=== PATIENT | male | born 1970 | race Caucasian/White ===

== ENCOUNTER 2024-03-19 11:00 | Emergency (ER) | payer MEDICARE, MEDICAID, SELFPAY ==
--- NOTE | 2024-03-19 11:22 | ED.GENADUL_ITS ---
Discharge Plan Disposition Patient Disposition: Eloped Discharge Details Clinical Impression: Agitation Primary Care Provider: Unknown,Unknown ED Provider: Be Borden Discharge Data Discharge Date/Time-TO BE ENTERED AT DEPARTURE: 03/19/24 11:28 HPI General Date/Time Provider Initiated Documentation: 03/19/24 11:21 . HPI Narrative: MDM This is an agitated male in the emergency department during my shift to arrived via [facility] police. He did not allow me to participate in his evaluation. He did not want care though he had initially told police that he wanted to be brought to the emergency department. He was discharged with police custody. He presented voluntarily with police and subsequently left prior to his evaluation being initiated I did not feel that he met criteria for an involuntary hold. He had no signs of trauma to suggest benefit from CT head. Furthermore police noted no recent trauma during their time in custody. HPI This is a 53-year-old male with reported history of bipolar disorder not taking any home medications arrived to the emergency department via [place] police custody after reportedly calling in 8 throughout. He was initially brought to an intoxication facility but his ethanol level was undetectable. He subsequently requested to be transferred to the emergency department. During his initial assessment in the emergency department he requested to leave. Exam General Mildly agitated. Head: Normocephalic, atraumatic. Eye: Extraocular eye movements intact. No conjunctival injection. No scleral icterus. Ear, nose, mouth, throat: Grossly normal inspection. Normal voice, handling secretions normally. Neck: Trachea midline. Cardiovascular: Well-perfused distal extremities. Respiratory: Nonlabored respiration. Gastrointestinal: Nondistended abdomen. Musculoskeletal: No edema. Moving all 4 extremities spontaneously. Skin: Normal for age and race, grossly normal temperature and turgor. No acute rash. Neurologic: Alert and ambulating. GCS not assessed. Psychiatric: Angry and disheveled appearing. Medical Decision Making Quality:SDOH Health Related Social Needs: No Data to Display PFSH All Active Problems (Updated 03/19/24 @ 15:35 by Be Borden MD) Agitation (Acute) Social History Smoking risk assessment performed?: No Details: unable to obtain Additional Social history: unable to obtain
--- NOTE | 2024-03-19 11:43 | NUR.NOTE ---
Nursing Note: this RN attempted to take pt VS pateint declined, told this RN get out of this room and dont talk to me Told provider he wants to smoke. Patient took all personal belongings out of department with [facility] and security following
== END 2024-03-19 11:28 | disposition left against medical advice (07) ==
LOC: ER 11:43
PROVIDERS: Emergency Provider Emergency Medicine
DX: R45.1 Restlessness and agitation (principal); Z53.21 Procedure and treatment not carried out due to patient leaving prior to being seen by health care provider

== ENCOUNTER 2024-03-19 21:32 | Emergency (ER) | payer MEDICARE, MEDICAID, SELFPAY ==
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
== END 2024-03-19 22:04 | disposition home or self-care (01) ==
PROVIDERS: Emergency Provider Emergency Medicine
DX: R46.2 Strange and inexplicable behavior (principal); R45.1 Restlessness and agitation
CPT/HCPCS: 99283

== ENCOUNTER 2024-03-21 01:46 | Emergency (ER) | payer MEDICARE, MEDICAID, SELFPAY ==
[2024-03-21] VITALS (15 sets, daily range): BP systolic 115–189; BP diastolic 85–132; PULSE 62–107; RESP 20–22; TEMP 36.6; O2SAT 94–98
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
--- NOTE | 2024-03-21 02:11 | NUR.NOTE ---
Nursing Note: Patients belongings have been inventoried and stored in Zone B room 1's locker.
[2024-03-21] MEDS: diazePAM 5 MG TAB PO (02:16)
[2024-03-21] MEDS: OLANZapine 10 MG TAB PO (02:16)
[2024-03-21 03:18] LABS: Abs Immature Grans 0.02 10^3/uL (0.0-0.06); Absolute Basophil Count 0.07 10^3/uL (0.0-0.2); Absolute Eosinophil Count 0.06 10^3/uL (0.0-0.7); Absolute Lymphocyte Count 1.12 10^3/uL (1.2-3.4); Absolute Monocyte Count 0.81 10^3/uL (0.1-0.8); Absolute Neutrophil Count 6.99 10^3/uL (1.2-6.7); Basophils % 0.8 %; Eosinophils % 0.7 %; HCT 39.2 % (40.0-50.0); HGB 13.7 g/dL (13.5-17.5); Immature Grans % 0.2 %; Lymphocytes % 12.3 %; MCHC 34.9 % (32.0-36.0); MCV 97 fL (80-95); MPV 8.6 fL (8.0-11.0); Monocytes % 8.9 %; Neutrophils % 77.1 %; Platelet Count 234 10^3/uL (130-400); RBC 4.03 10^6/uL (4.36-5.78); RDW 13.2 % (11.8-14.1); RDW-SD 47.5 fL; WBC 9.07 10^3/uL (4.4-10.8)
[2024-03-21 03:33] LABS: ALT 47 U/L (16-63); AST 41 U/L (15-37); Albumin 3.4 g/dL (3.4-5.0); Alkaline Phosphatase 90 U/L (46-116); Anion Gap 10.4 mmol/L (3-11); BUN 14 mg/dL (7-18); Bilirubin, Total 0.65 mg/dL (0.2-1.0); CO2 29.6 mmol/L (21.0-32.0); CREATININE 0.9 mg/dL (0.70-1.30); Calcium 9.3 mg/dL (8.5-10.1); Chloride 103 mmol/L (98-107); Glucose 147 mg/dL (74-106); Potassium 3.9 mmol/L (3.5-5.1); Sodium 143 mmol/L (136-145); Total Protein 6.7 g/dL (6.4-8.2)
[2024-03-21 03:34] LABS: ETHANOL BLOOD < 3.0 mg/dL (<10)
[2024-03-21 08:04] LABS: *AMPHETAMINES SCREEN URINE Negative (Negative); *BARBITURATES SCREEN URINE Positive (Negative); *BENZODIAZEPINES SCREEN URINE Positive (Negative); Cannabinoids THC Positive (Negative); Cocaine Screen,Urine Negative (Negative); METHADONE URINE SCREEN Negative (Negative); OPIATES URINE SCREEN Negative (Negative)
[2024-03-21 08:05] LABS: Tricyclic Antidepressants Negative (Negative)
--- NOTE | 2024-03-21 09:41 | CMSP_ITS ---
Date of service: 03/21/24 Time of Service: 09:41 Care Management Safety Plan Status Status: Involuntary Reason for Wait Reason for Wait: Assessment/Screening (waiting for second EE to be completed) Safety Plan Safety Plan: INVOLUNTARY FOR INPATIENT PSYCHIATRIC STABILIZATION.? Patient is appropriate in all interactions since arriving at [facility]; Pt has demonstrated appropriate coping and communication skills, has articulated his or her needs and concerns and is fully engaged during staff interactions. Safety plan has been established with patient, and care team, to adhere to patient goals, identify restrictions based on behavioral status, address nutrition, and determine allowed personal belongings, tools for hygiene and personal care. Determine level of activity including ambulation, level of supervision, visitors, and determine privileges based on behaviors and level of engagement by pt. SAFETY PLAN: 1. Will remain on suicide precautions, in paper clothes 2. Will remain in Zone B under direct supervision of one-on-one staff at all times provided by [employer]; WILL, TUNNEL ELASTIC OPERATOR LOCKSTITCH corrugated fastener driver. 3. May have paper cups, plates, finger foods as well as a cardboard spoon with which to eat meals. 4. Follow [facility] Management of the Admitted Behavioral Health Patient policy. 5. Shower available in Zone B without restriction. 6. Personal belongings-soft items permitted at RN discretion. 7. Visitors-none at this time. 8. Activities: soft cart items approved per RN discretion. 9.? Bathroom available in Zone B without restriction. 10. Phone: limited to [facility] cordless phone at RN discretion. Due to INVOLUNTARY status, patient is being held at [facility] by the Department of Mental Health ([facility]) until 2nd certification by [facility] Psychiatrist can be performed (within 24 hours). Staff will provide de-escalation support (CPI) as needed. If patient wishes to leave [facility], staff will contact [facility] Crisis Screener ([phone]) and [employer] ([phone]) as soon as possible. In the event of elopement, notify [place] [employer] ([phone]). Patient is currently involuntarily at [facility]. [facility] Frontline Quality Rep will continue seeking placement. Please contact the [employer] for any needed changes to Safety Plan. Safety plan has been provided to interdepartmental care team. Patient will be transported by [employer] at time of discharge.
--- NOTE | 2024-03-21 09:41 | PDOC.CMSAFE ---
Date of service: 03/21/24 Time of Service: 09:41 Care Management Safety Plan Status Status: Involuntary Reason for Wait Reason for Wait: Assessment/Screening (waiting for second EE to be completed) Safety Plan Safety Plan: INVOLUNTARY FOR INPATIENT PSYCHIATRIC STABILIZATION.? Patient is appropriate in all interactions since arriving at [facility]; Pt has demonstrated appropriate coping and communication skills, has articulated his or her needs and concerns and is fully engaged during staff interactions. Safety plan has been established with patient, and care team, to adhere to patient goals, identify restrictions based on behavioral status, address nutrition, and determine allowed personal belongings, tools for hygiene and personal care. Determine level of activity including ambulation, level of supervision, visitors, and determine privileges based on behaviors and level of engagement by pt. SAFETY PLAN: 1. Will remain on suicide precautions, in paper clothes 2. Will remain in Zone B under direct supervision of one-on-one staff at all times provided by [employer]; WILL, SUPERVISOR SOAKERS paper wrapping machine operator. 3. May have paper cups, plates, finger foods as well as a cardboard spoon with which to eat meals. 4. Follow [facility] Management of the Admitted Behavioral Health Patient policy. 5. Shower available in Zone B without restriction. 6. Personal belongings-soft items permitted at RN discretion. 7. Visitors-none at this time. 8. Activities: soft cart items approved per RN discretion. 9.? Bathroom available in Zone B without restriction. 10. Phone: limited to [facility] cordless phone at RN discretion. Due to INVOLUNTARY status, patient is being held at [facility] by the Department of Mental Health ([facility]) until 2nd certification by [facility] Psychiatrist can be performed (within 24 hours). Staff will provide de-escalation support (CPI) as needed. If patient wishes to leave [facility], staff will contact [facility] Crisis Screener ([phone]) and [employer] ([phone]) as soon as possible. In the event of elopement, notify [place] [employer] ([phone]). Patient is currently involuntarily at [facility]. [facility] Frontline Home Economist Consumer Service will continue seeking placement. Please contact the [employer] for any needed changes to Safety Plan. Safety plan has been provided to interdepartmental care team. Patient will be transported by [email or web address] at time of discharge.
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
--- NOTE | 2024-03-21 15:02 | PDOC.CMPRO ---
Date of service: 03/21/24 Time of Service: 15:03 Care Management Progress Note Progress Note Text Progress Note Text: Faustino had his second EE evaluation today. The second certification has gone through and has been approved. Faustino is now pending placement. Huddle was held earlier in the day with [facility] and [facility] B RN. SDOH(Care Management) Screening Will the Patient Participate in the Screening?: Unable to obtain
--- NOTE | 2024-03-21 23:58 | W.EDPROG ---
Date of service: 03/21/24 Time of Service: 23:58 Medical Decision Making This patient was signed out to me. Please see previous notes for H&P and initial eval. In brief, 53yo M with hx of bipolar, not taking medication, presented with jean carlos/HI, EEd, 2nd cert complicated. Pending placement. Overnight no acute events. Will be signed out to oncoming physician, plan remains as above. Quality:SDOH Health Related Social Needs: No Data to Display Sign Out Sign Out Data: Sign Out Comment: Bipolar, jean carlos, threatening family with chainsaw/hacksaw. Medically cleared, no home meds. Took PO olanzapine and diazepam. EEd pending 2nd cert. Last updated by Jacqui Salazar MD at 03/21/24 05:19 Sign Out Comment: Jean Carlos, homicidal and suicidal ideations. No home meds. Patient stable throughout the shift. Second certification has been completed, awaiting placement. Last updated by Red Potts DO at 03/21/24 16:29 Sign Out Comment: bipolar off meds, EE Last updated by Addy Fairbanks MD at 03/21/24 23:54 Discharge Plan Discharge Details Chief Complaint: PsychEval Clinical Impression: Delusional disorder Primary Care Provider: Unknown,Unknown ED Provider: Jacqui Salazar Home Meds and New Rx's Prescriptions: No Action Unable to Obtain
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
[2024-03-22 07:21] VITALS: BP 152/91; PULSE 74; RESP 18; TEMP 36.6; O2SAT 96
[2024-03-22] MEDS: Aspirin 81 MG CHEW 162 MG PO (09:12)
[2024-03-22] MEDS: OLANZapine 5 MG TAB PO ×2 (12:33→19:53)
[2024-03-22] MEDS: Nicotine 14 MG/24 HR PATCH TD (14:08)
--- NOTE | 2024-03-22 15:41 | CMSP_ITS ---
Date of service: 03/22/24 Time of Service: 15:41 Care Management Safety Plan Status Status: Involuntary Reason for Wait Reason for Wait: Inpatient Admission Safety Plan Safety Plan: INVOLUNTARY FOR INPATIENT PSYCHIATRIC STABILIZATION.? Patient is appropriate in all interactions since arriving at [facility]; Pt has demonstrated appropriate coping and communication skills, has articulated his needs and concerns and is fully engaged during staff interactions. Safety plan has been established with patient, and care team, to adhere to patient goals, identify restrictions based on behavioral status, address nutrition, and determine allowed personal belongings, tools for hygiene and personal care. Determine level of activity including ambulation, level of supervision, visitors, and determine privileges based on behaviors and level of engagement by pt. SAFETY PLAN: 1. Will remain on suicide precautions, in paper clothes 2. Will remain in Zone B under direct supervision of one-on-one staff at all times provided by [employer]; WILL, CARPENTER ASSISTANT INSTALLER junior electrical engineer. 3. May have paper cups, plates, finger foods as well as a cardboard spoon with which to eat meals. 4. Follow [facility] Management of the Admitted Behavioral Health Patient policy. 5. Shower available in Zone B without restriction. 6. Personal belongings-soft items permitted at RN discretion. 7. Visitors-none at this time. 8. Activities: soft cart items approved per RN discretion. 9.? Bathroom available in Zone B without restriction. 10. Phone: limited to [facility] cordless phone at RN discretion. Due to INVOLUNTARY status, patient is being held at [facility] by the Department of Mental Health ([facility]) until 2nd certification by [facility] Psychiatrist can be performed (within 24 hours). Staff will provide de-escalation support (CPI) as needed. If patient wishes to leave [facility], staff will contact [facility] Crisis Screener ([phone]) and [employer] ([phone]) as soon as possible. In the event of elopement, notify [place] [employer] ([phone]). Patient is currently involuntarily at [facility]. [facility] Frontline Supervisor Industrial Garment will continue seeking placement. Please contact the [employer] for any needed changes to Safety Plan. Safety plan has been provided to interdepartmental care team. Patient will be transported by [employer] at time of discharge.
--- NOTE | 2024-03-22 15:41 | PDOC.CMSAFE ---
Date of service: 03/22/24 Time of Service: 15:41 Care Management Safety Plan Status Status: Involuntary Reason for Wait Reason for Wait: Inpatient Admission Safety Plan Safety Plan: INVOLUNTARY FOR INPATIENT PSYCHIATRIC STABILIZATION.? Patient is appropriate in all interactions since arriving at [facility]; Pt has demonstrated appropriate coping and communication skills, has articulated his needs and concerns and is fully engaged during staff interactions. Safety plan has been established with patient, and care team, to adhere to patient goals, identify restrictions based on behavioral status, address nutrition, and determine allowed personal belongings, tools for hygiene and personal care. Determine level of activity including ambulation, level of supervision, visitors, and determine privileges based on behaviors and level of engagement by pt. SAFETY PLAN: 1. Will remain on suicide precautions, in paper clothes 2. Will remain in Zone B under direct supervision of one-on-one staff at all times provided by [employer]; WILL, SENIOR APPLICATION PROGRAMMER director counseling bureau. 3. May have paper cups, plates, finger foods as well as a cardboard spoon with which to eat meals. 4. Follow [facility] Management of the Admitted Behavioral Health Patient policy. 5. Shower available in Zone B without restriction. 6. Personal belongings-soft items permitted at RN discretion. 7. Visitors-none at this time. 8. Activities: soft cart items approved per RN discretion. 9.? Bathroom available in Zone B without restriction. 10. Phone: limited to [facility] cordless phone at RN discretion. Due to INVOLUNTARY status, patient is being held at [facility] by the Department of Mental Health ([facility]) until 2nd certification by [facility] Psychiatrist can be performed (within 24 hours). Staff will provide de-escalation support (CPI) as needed. If patient wishes to leave [facility], staff will contact [facility] Crisis Screener ([phone]) and [employer] ([phone]) as soon as possible. In the event of elopement, notify [place] [employer] Police ([phone]). Patient is currently involuntarily at [facility]. [facility] Frontline Clinic Specialist will continue seeking placement. Please contact the [employer] for any needed changes to Safety Plan. Safety plan has been provided to interdepartmental care team. Patient will be transported by [employer] at time of discharge.
[2024-03-22] MEDS: LORazepam 1 MG TAB PO (18:07)
--- NOTE | 2024-03-22 23:44 | W.EDPROG ---
Date of service: 03/22/24 Time of Service: 23:44 Medical Decision Making This patient was signed out to me. Please see previous notes for H&P and initial eval. In brief, 53yo M with jean carlos/HI, EEd and 2nd cert completed, medically cleared pending involuntary placement. Overnight no acute events. Will be signed out to oncoming physician; plan remains as above. Quality:[facility] Health Related Social Needs: No Data to Display Sign Out Sign Out Data: Sign Out Comment: Bipolar, jean carlos, threatening family with chainsaw/hacksaw. Medically cleared, no home meds. Took PO olanzapine and diazepam. EEd pending 2nd cert. Last updated by Jacqui Salazar MD at 03/21/24 05:19 Sign Out Comment: Jean Carlos, homicidal and suicidal ideations. No home meds. Patient stable throughout the shift. Second certification has been completed, awaiting placement. Last updated by Red Potts DO at 03/21/24 16:29 Sign Out Comment: bipolar off meds, EE Last updated by Addy Fairbanks MD at 03/21/24 23:54 Sign Out Comment: EE, 2nd cert done, pending placement. No acute issues overnight. Last updated by Jacqui Salazar MD at 03/22/24 07:03 Sign Out Comment: 53-year-old male patient, history of bipolar, unmedicated, here with jean carlos, HI, boarding and awaiting final placement. On EEG, continued pressured speech and disordered thinking, poor insight. Has been taking Zyprexa to good effect, no restraints required during my shift. Last updated by Hue Rai MD at 03/22/24 15:56 Sign Out Comment: EE, awaiting placement Last updated by Addy Fairbanks MD at 03/22/24 23:38 Discharge Plan Discharge Details Chief Complaint: PsychEval Clinical Impression: Delusional disorder Primary Care Provider: Unknown,Unknown ED Provider: Jacqui Salazar Home Meds and New Rx's Prescriptions: No Action Unable to Obtain
[2024-03-23] MEDS: LORazepam 1 MG TAB PO ×2 (07:06→19:34)
[2024-03-23 07:21] VITALS: BP 148/92; PULSE 75; RESP 16; TEMP 36.6; O2SAT 97
--- NOTE | 2024-03-23 08:39 | W.EDPROG ---
Date of service: 03/23/24 Time of Service: 08:00 Medical Decision Making This is a 53-year-old male patient with history of bipolar disorder, not currently medicated, boarding in our emergency department on an EE for homicidal ideation and jean carlos. In our department the patient has been medically cleared, has not required chemical or physical restraint, and is awaiting placement by crisis. He has been taking oral meds voluntarily, did complain of a headache this morning but was not desiring of any Tylenol for this complaint. The patient was signed out to the oncoming provider prior to final placement by [facility]. Remained hemodynamically appropriate and stable under my care. Hue Rai MD Medical Records Medical records reviewed: Yes I reviewed the patient's medical records. Lab Data Lab results reviewed: Yes I reviewed the patient's lab results. Quality:[facility] Health Related Social Needs: No Data to Display Sign Out Sign Out Data: Sign Out Comment: Bipolar, jean carlos, threatening family with chainsaw/hacksaw. Medically cleared, no home meds. Took PO olanzapine and diazepam. EEd pending 2nd cert. Last updated by Jacqui Salazar MD at 03/21/24 05:19 Sign Out Comment: Jean Carlos, homicidal and suicidal ideations. No home meds. Patient stable throughout the shift. Second certification has been completed, awaiting placement. Last updated by Red Potts DO at 03/21/24 16:29 Sign Out Comment: bipolar off meds, EE Last updated by Addy Fairbanks MD at 03/21/24 23:54 Sign Out Comment: EE, 2nd cert done, pending placement. No acute issues overnight. Last updated by Jacqui Salazar MD at 03/22/24 07:03 Sign Out Comment: 53-year-old male patient, history of bipolar, unmedicated, here with jean carlos, HI, boarding and awaiting final placement. On EEG, continued pressured speech and disordered thinking, poor insight. Has been taking Zyprexa to good effect, no restraints required during my shift. Last updated by Hue Rai MD at 03/22/24 15:56 Sign Out Comment: EE, awaiting placement Last updated by Addy Fairbanks MD at 03/22/24 23:38 Sign Out Comment: EEd, 2nd cert done, awaiting placement. Last updated by Jacqui Salazar MD at 03/23/24 06:59 Discharge Plan Discharge Details Chief Complaint: PsychEval Clinical Impression: Delusional disorder Primary Care Provider: Unknown,Unknown ED Provider: Hue Rai Home Meds and New Rx's Prescriptions: No Action Unable to Obtain
[2024-03-23] MEDS: OLANZapine 5 MG TAB PO ×2 (08:53→19:33)
--- NOTE | 2024-03-23 18:32 | CMSP_ITS ---
Date of service: 03/23/24 Time of Service: 18:32 Care Management Safety Plan Status Status: Involuntary Reason for Wait Reason for Wait: Inpatient Admission Safety Plan Safety Plan: INVOLUNTARY FOR INPATIENT PSYCHIATRIC STABILIZATION.? Patient is appropriate in all interactions since arriving at [facility]; Pt has demonstrated appropriate coping and communication skills, has articulated his needs and concerns and is fully engaged during staff interactions. Safety plan has been established with patient, and care team, to adhere to patient goals, identify restrictions based on behavioral status, address nutrition, and determine allowed personal belongings, tools for hygiene and personal care. Determine level of activity including ambulation, level of supervision, visitors, and determine privileges based on behaviors and level of engagement by pt. SAFETY PLAN: 1. Will remain on suicide precautions, in paper clothes 2. Will remain in Zone B under direct supervision of one-on-one staff at all times provided by [employer]; WILL, EDUCATION MANAGER mill work. 3. May have paper cups, plates, finger foods as well as a cardboard spoon with which to eat meals. 4. Follow [facility] Management of the Admitted Behavioral Health Patient policy. 5. Shower available in Zone B without restriction. 6. Personal belongings-soft items permitted at RN discretion. 7. Visitors-none at this time. 8. Activities: soft cart items approved per RN discretion. 9.? Bathroom available in Zone B without restriction. 10. Phone: limited to [facility] cordless phone at RN discretion. Due to INVOLUNTARY status, patient is being held at [facility] by the Department of Mental Health ([facility]) until 2nd certification by [facility] Psychiatrist can be performed (within 24 hours). Staff will provide de-escalation support (CPI) as needed. If patient wishes to leave [facility], staff will contact [facility] Crisis Screener ([phone]) and Satur[employer] ([phone]) as soon as possible. In the event of elopement, notify [place] [employer] ([phone]). Patient is currently involuntarily at [facility]. [facility] Frontline Director Of Curriculum will continue seeking placement. Please contact the Saturator [employer] for any needed changes to Safety Plan. Safety plan has been provided to interdepartmental care team. Patient will be transported by [employer] at time of discharge.
--- NOTE | 2024-03-23 23:45 | W.EDPROG ---
Date of service: 03/23/24 Time of Service: 23:45 Medical Decision Making Resting of really no acute distress. No events this shift Quality:[facility] Health Related Social Needs: No Data to Display Sign Out Sign Out Data: Sign Out Comment: Bipolar, jean carlos, threatening family with chainsaw/hacksaw. Medically cleared, no home meds. Took PO olanzapine and diazepam. EEd pending 2nd cert. Last updated by Jacqui Salazar MD at 03/21/24 05:19 Sign Out Comment: Jean Carlos, homicidal and suicidal ideations. No home meds. Patient stable throughout the shift. Second certification has been completed, awaiting placement. Last updated by Red Potts DO at 03/21/24 16:29 Sign Out Comment: bipolar off meds, EE Last updated by Addy Fairbanks MD at 03/21/24 23:54 Sign Out Comment: EE, 2nd cert done, pending placement. No acute issues overnight. Last updated by Jacqui Salazar MD at 03/22/24 07:03 Sign Out Comment: 53-year-old male patient, history of bipolar, unmedicated, here with jean carlos, HI, boarding and awaiting final placement. On EEG, continued pressured speech and disordered thinking, poor insight. Has been taking Zyprexa to good effect, no restraints required during my shift. Last updated by Hue Rai MD at 03/22/24 15:56 Sign Out Comment: EE, awaiting placement Last updated by Addy Fairbanks MD at 03/22/24 23:38 Sign Out Comment: EEd, 2nd cert done, awaiting placement. Last updated by Jacqui Salazar MD at 03/23/24 06:59 Sign Out Comment: EE for jean carlos and homicidal ideation, awaiting placement, no issues on day shift Last updated by Hue Rai MD at 03/23/24 17:17 Discharge Plan Discharge Details Chief Complaint: PsychEval Clinical Impression: Delusional disorder Primary Care Provider: Unknown,Unknown ED Provider: Addy Fairbanks Home Meds and New Rx's Prescriptions: No Action Unable to Obtain
--- NOTE | 2024-03-24 07:06 | W.EDPROG ---
Date of service: 03/24/24 Time of Service: 07:06 Medical Decision Making I received signout on this 53-year-old male on an EE with second certification upheld. He is pending involuntary placement. No active issues nor restraints last shift. He is on scheduled olanzapine. Will update documentation as clinically warranted and sign patient out to oncoming evening provider. 4:45 PM No active behavioral issues last shift. Will sign patient out to Dr. Tineo. Quality:[facility] Health Related Social Needs: No Data to Display Sign Out Sign Out Data: Sign Out Comment: Bipolar, jean carlos, threatening family with chainsaw/hacksaw. Medically cleared, no home meds. Took PO olanzapine and diazepam. EEd pending 2nd cert. Last updated by Jacqui Salazar MD at 03/21/24 05:19 Sign Out Comment: Involuntary admission, awaiting placement, no interventions needed throughout cage shift manager. Last updated by Red Potts DO at 03/24/24 05:10 Sign Out Comment: Jean Carlos, homicidal and suicidal ideations. No home meds. Patient stable throughout the shift. Second certification has been completed, awaiting placement. Last updated by Red Potts DO at 03/21/24 16:29 Sign Out Comment: bipolar off meds, EE Last updated by Addy Fairbanks MD at 03/21/24 23:54 Sign Out Comment: EE, 2nd cert done, pending placement. No acute issues overnight. Last updated by Jacqui Salazar MD at 03/22/24 07:03 Sign Out Comment: 53-year-old male patient, history of bipolar, unmedicated, here with jean carlos, HI, boarding and awaiting final placement. On EEG, continued pressured speech and disordered thinking, poor insight. Has been taking Zyprexa to good effect, no restraints required during my shift. Last updated by Hue Rai MD at 03/22/24 15:56 Sign Out Comment: EE, awaiting placement Last updated by Addy Fairbanks MD at 03/22/24 23:38 Sign Out Comment: EEd, 2nd cert done, awaiting placement. Last updated by Jacqui Salazar MD at 03/23/24 06:59 Sign Out Comment: EE for jean carlos and homicidal ideation, awaiting placement, no issues on day shift Last updated by Heu Rai MD at 03/23/24 17:17 Sign Out Comment: EE, no acute distress today Last updated by Addy Fairbanks MD at 03/23/24 23:55 Discharge Plan Discharge Details Chief Complaint: PsychEval Clinical Impression: Delusional disorder Primary Care Provider: Unknown,Unknown ED Provider: Be Borden Home Meds and New Rx's Prescriptions: No Action Unable to Obtain
[2024-03-24 07:43] VITALS: BP 141/94; PULSE 84; RESP 18; TEMP 36.6; O2SAT 97
[2024-03-24] MEDS: OLANZapine 5 MG TAB PO (07:43)
[2024-03-24] MEDS: LORazepam 1 MG TAB PO ×2 (11:17→15:36)
--- NOTE | 2024-03-24 13:52 | CMSP_ITS ---
Date of service: 03/24/24 Time of Service: 10:45 Care Management Safety Plan Status Status: Involuntary Reason for Wait Reason for Wait: Inpatient Admission Safety Plan Safety Plan: INVOLUNTARY FOR INPATIENT PSYCHIATRIC STABILIZATION.? Patient is appropriate in all interactions since arriving at [facility]; Pt has demonstrated appropriate coping and communication skills, has articulated his needs and concerns and is fully engaged during staff interactions. Safety plan has been established with patient, and care team, to adhere to patient goals, identify restrictions based on behavioral status, address nutrition, and determine allowed personal belongings, tools for hygiene and personal care. Determine level of activity including ambulation, level of supervision, visitors, and determine privileges based on behaviors and level of engagement by pt. SAFETY PLAN: 1. Will remain on suicide precautions, in paper clothes 2. Will remain in Zone B under direct supervision of one-on-one staff at all times provided by [employer]; WILL, PCB DESIGN ENGINEER cornice maker. 3. May have paper cups, plates, finger foods as well as a cardboard spoon with which to eat meals. 4. Follow [facility] Management of the Admitted Behavioral Health Patient policy. 5. Shower available in Zone B without restriction. 6. Personal belongings-soft items permitted at RN discretion. 7. Visitors-none at this time. 8. Activities: soft cart items approved per RN discretion. 9.? Bathroom available in Zone B without restriction. 10. Phone: limited to [facility] cordless phone at RN discretion. Due to INVOLUNTARY status, patient is being held at [facility] by the Department of Mental Health ([facility]) until 2nd certification by [facility] Psychiatrist can be performed (within 24 hours). Staff will provide de-escalation support (CPI) as needed. If patient wishes to leave [facility], staff will contact [facility] Crisis Screener ([phone]) and [employer] ([phone]) as soon as possible. In the event of elopement, notify [place] [employer] ([phone]). Patient is currently involuntarily at [facility]. [facility] Frontline Digital Marketing Officer will continue seeking placement. Please contact the [employer] for any needed changes to Safety Plan. Safety plan has been provided to interdepartmental care team. Patient will be transported by [employer] at time of discharge.
--- NOTE | 2024-03-24 13:52 | PDOC.CMSAFE ---
Date of service: 03/24/24 Time of Service: 10:45 Care Management Safety Plan Status Status: Involuntary Reason for Wait Reason for Wait: Inpatient Admission Safety Plan Safety Plan: INVOLUNTARY FOR INPATIENT PSYCHIATRIC STABILIZATION.? Patient is appropriate in all interactions since arriving at [facility]; Pt has demonstrated appropriate coping and communication skills, has articulated his needs and concerns and is fully engaged during staff interactions. Safety plan has been established with patient, and care team, to adhere to patient goals, identify restrictions based on behavioral status, address nutrition, and determine allowed personal belongings, tools for hygiene and personal care. Determine level of activity including ambulation, level of supervision, visitors, and determine privileges based on behaviors and level of engagement by pt. SAFETY PLAN: 1. Will remain on suicide precautions, in paper clothes 2. Will remain in Zone B under direct supervision of one-on-one staff at all times provided by [employer]; WILL, DIRECTOR OF MARKETING [employer] ADS briquetter operator. 3. May have paper cups, plates, finger foods as well as a cardboard spoon with which to eat meals. 4. Follow [facility] Management of the Admitted Behavioral Health Patient policy. 5. Shower available in Zone B without restriction. 6. Personal belongings-soft items permitted at RN discretion. 7. Visitors-none at this time. 8. Activities: soft cart items approved per RN discretion. 9.? Bathroom available in Zone B without restriction. 10. Phone: limited to [facility] cordless phone at RN discretion. Due to INVOLUNTARY status, patient is being held at [facility] by the Department of Mental Health ([facility]) until 2nd certification by [facility] Psychiatrist can be performed (within 24 hours). Staff will provide de-escalation support (CPI) as needed. If patient wishes to leave [facility], staff will contact [facility] Crisis Screener ([phone]) and Senior Service Aide ([phone]) as soon as possible. In the event of elopement, notify [place] [employer] ([phone]). Patient is currently involuntarily at [facility]. [facility] Frontline Senior Hardware Design Engineer will continue seeking placement. Please contact the Senior Service Aide for any needed changes to Safety Plan. Safety plan has been provided to interdepartmental care team. Patient will be transported by [facility] at time of discharge.
[2024-03-24 18:53] VITALS: BP 161/98; PULSE 79; RESP 20; TEMP 36.5; O2SAT 99
[2024-03-24] MEDS: QUEtiapine 100 MG TAB PO (20:40)
--- NOTE | 2024-03-24 22:58 | W.EDPROG ---
Date of service: 03/24/24 Time of Service: 22:58 Medical Decision Making Care assumed from outgoing provider. Patient has been calm and cooperative while in the emergency department. He did request something to help him sleep. He is pending placement after EE and second certification. Quality:[facility] Health Related Social Needs: No Data to Display Sign Out Sign Out Data: Sign Out Comment: Bipolar, jean carlos, threatening family with chainsaw/hacksaw. Medically cleared, no home meds. Took PO olanzapine and diazepam. EEd pending 2nd cert. Last updated by Jacqui Salazar MD at 03/21/24 05:19 Sign Out Comment: Involuntary admission, awaiting placement, no interventions needed throughout night shift manager. Last updated by Red Potts DO at 03/24/24 05:10 Sign Out Comment: Currently on EE awaiting placement taking medications. No active behavioral issues nor restraints during dayshift. Second certification has held. Last updated by Be Borden MD at 03/24/24 16:46 Sign Out Comment: Jean Carlos, homicidal and suicidal ideations. No home meds. Patient stable throughout the shift. Second certification has been completed, awaiting placement. Last updated by Red Potts DO at 03/21/24 16:29 Sign Out Comment: bipolar off meds, EE Last updated by Addy Fairbanks MD at 03/21/24 23:54 Sign Out Comment: EE, 2nd cert done, pending placement. No acute issues overnight. Last updated by Jacqui Salazar MD at 03/22/24 07:03 Sign Out Comment: 53-year-old male patient, history of bipolar, unmedicated, here with jean carlos, [place], boarding and awaiting final placement. On EEG, continued pressured speech and disordered thinking, poor insight. Has been taking Zyprexa to good effect, no restraints required during my shift. Last updated by Hue Rai MD at 03/22/24 15:56 Sign Out Comment: EE, awaiting placement Last updated by Addy Fairbanks MD at 03/22/24 23:38 Sign Out Comment: EEd, 2nd cert done, awaiting placement. Last updated by Jacqui Salazar MD at 03/23/24 06:59 Sign Out Comment: EE for jean carlos and homicidal ideation, awaiting placement, no issues on day shift Last updated by Hue Rai MD at 03/23/24 17:17 Sign Out Comment: EE, no acute distress today Last updated by Addy Fairbanks MD at 03/23/24 23:55 Discharge Plan Discharge Details Chief Complaint: PsychEval Clinical Impression: Delusional disorder Primary Care Provider: Unknown,Unknown ED Provider: Martina Tineo Home Meds and New Rx's Prescriptions: No Action Unable to Obtain
[2024-03-25] MEDS: LORazepam 1 MG TAB PO (05:42)
--- NOTE | 2024-03-25 08:04 | ED.PROG_ITS ---
Date of service: 03/25/24 Time of Service: 08:04 Medical Decision Making Patient here involuntarily for delusional behavior, also some homicidal ideations, no reported issues on prior shift, no new acute complaints. Will continue to monitor until safe disposition found Quality:[facility] Health Related Social Needs: No Data to Display Sign Out Sign Out Data: Sign Out Comment: Bipolar, jean carlos, threatening family with chainsaw/hacksaw. Medically cleared, no home meds. Took PO olanzapine and diazepam. EEd pending 2nd cert. Last updated by Jacqui Salazar MD at 03/21/24 05:19 Sign Out Comment: Involuntary admission, awaiting placement, no interventions needed throughout slot shift manager. Last updated by Red Potts DO at 03/24/24 05:10 Sign Out Comment: Currently on EE awaiting placement taking medications. No active behavioral issues nor restraints during dayshift. Second certification has held. Last updated by Be Borden MD at 03/24/24 16:46 Sign Out Comment: EE with second cert med given to help with sleep otherwise no issue Last updated by Martina Tineo MD at 03/24/24 23:59 Sign Out Comment: Patient here involuntarily, second certification completed, no behavioral issues throughout the slot shift manager. Last updated by Red Potts DO at 03/25/24 05:25 Sign Out Comment: Jean Carlos, homicidal and suicidal ideations. No home meds. Patient stable throughout the shift. Second certification has been completed, awaiting placement. Last updated by Red Potts DO at 03/21/24 16:29 Sign Out Comment: bipolar off meds, EE Last updated by Addy Fairbanks MD at 03/21/24 23:54 Sign Out Comment: EE, 2nd cert done, pending placement. No acute issues overnight. Last updated by Jacqui Salazar MD at 03/22/24 07:03 Sign Out Comment: 53-year-old male patient, history of bipolar, unmedicated, here with jean carlos, [place], boarding and awaiting final placement. On EEG, continued pressured speech and disordered thinking, poor insight. Has been taking Zyprexa to good effect, no restraints required during my shift. Last updated by Hue Rai MD at 03/22/24 15:56 Sign Out Comment: EE, awaiting placement Last updated by Addy Fairbanks MD at 03/22/24 23:38 Sign Out Comment: EEd, 2nd cert done, awaiting placement. Last updated by Jacqui Salazar MD at 03/23/24 06:59 Sign Out Comment: EE for jean carlos and homicidal ideation, awaiting placement, no issues on day shift Last updated by Hue Rai MD at 03/23/24 17:17 Sign Out Comment: EE, no acute distress today Last updated by Addy Fairbanks MD at 03/23/24 23:55 Discharge Plan Discharge Details Chief Complaint: PsychEval Clinical Impression: Delusional disorder Primary Care Provider: Unknown,Unknown ED Provider: Jensen Hannah Home Meds and New Rx's Prescriptions: No Action Unable to Obtain
[2024-03-25] MEDS: OLANZapine 5 MG TAB PO (09:04)
--- NOTE | 2024-03-25 10:27 | NUR.NOTE ---
Spoke with Edel WINCHESTER from [facility] and nurse to nurse done. They have notified [facility] to set up transport and will notify us with approx time.
== END 2024-03-25 14:51 ==
PROVIDERS: Student in an Organized Health Care Education/Training Program; Emergency Provider Emergency Medicine
DX: F31.2 Bipolar disorder, current episode manic severe with psychotic features
CPT/HCPCS: 00123; 36415; 80053; 80307; 99285; 80320; 85025